=== PATIENT | male | born 1980 | race African-American/Black ===

== ENCOUNTER 2020-02-01 12:26 | Emergency (ER) | payer SELFPAY ==
[~2020-02-01] VITALS: Ht 182.9 cm; Wt 102.3 kg
[2020-02-01 12:55] VITALS: BP 197/109
[2020-02-01] MEDS ORDERED: AMOXICILLIN 250 MG CAPSULE. PO ONE ×2 (13:15→13:45)
[2020-02-01] MEDS ORDERED: LIDOCAINE 1% PF 2 ML VIAL. INJ ONE (13:30)
[2020-02-01] MEDS ORDERED: AMOX500T PO (14:15)
[2020-02-01] MEDS ORDERED: IBUP-1007 PO (14:15)
--- NOTE | 2020-02-01 14:16 | PHYS DOC ---
Past Medical History Past Medical History: No Pertinent History Past Surgical History: No Surgical History Smoking Status: Current Every Day Smoker Alcohol Use: None General Adult EDM: Chief Complaint: DENTAL PROBLEM HPI: HPI: Patient is a 39 year old male patient who presents to the ED today with 10 out of 10 left lower gum dental pain that began 4 days ago. Patient denies any fever. Denies any trismus. Review of Systems: Review of Systems: Constitutional: Denies fever or chills. [] HENT: Reports left lower gum dental pain. Denies nasal congestion or sore throat. [] Musculoskeletal: Denies back pain or joint pain. [] Integument: Denies rash. [] Neurologic: Denies headache, focal weakness or sensory changes. [] Psychiatric: Denies depression or anxiety. [] Heart Score: Risk Factors: Risk Factors: DM, Current or recent (<one month) smoker, HTN, HLP, family history of CAD, obesity. Risk Scores: Score 0 - 3: 2.5% MACE over next 6 weeks - Discharge Home Score 4 - 6: 20.3% MACE over next 6 weeks - Admit for Clinical Observation Score 7 - 10: 72.7% MACE over next 6 weeks - Early Invasive Strategies Current Medications: Current Medications Medications (Trade) Dose Ordered Sig/Tarik Start Time Stop Time Status Last Admin Dose Admin Amoxicillin (Amoxil) 500 mg 1X ONCE 02/01/20 13:45 02/01/20 13:46 DC 02/01/20 13:30 500 MG Lidocaine HCl (Xylocaine-Mpf 1% 2ml Vial) 2 ml 1X ONCE 02/01/20 13:30 02/01/20 13:31 DC 02/01/20 13:30 2 ML Allergies: Allergies: Allergies Coded Allergies Type Severity Reaction Last Updated Verified No Known Drug Allergies 02/01/20 No Physical Exam: PE: Constitutional: Well developed, well nourished, no acute distress, non-toxic appearance. [] HENT: Normocephalic, atraumatic, bilateral external ears normal, oropharynx moist, no oral exudates, nose normal. [] Approximately tooth #20 is broken and decayed. No gum erythema or abscess noted. Skin: Warm, dry, no erythema, no rash. [] Back: No tenderness, no CVA tenderness. [] Extremities: No tenderness, no cyanosis, no clubbing, ROM intact, no edema. [] Neurologic: Alert and oriented X 3, normal motor function, normal sensory function, no focal deficits noted. [] Psychologic: Affect normal, judgement normal, mood normal. [] Current Patient Data: Vital Signs: Vital Signs Date Time Temp Pulse Resp B/P (MAP) Pulse Ox O2 Delivery O2 Flow Rate FiO2 02/01/20 12:55 98.6 14 197/109 (138) 97 Room Air 98.6 EKG: EKG: [] Radiology/Procedures: Radiology/Procedures: [] Course & Med Decision Making: Course & Med Decision Making Pertinent Labs and Imaging studies reviewed. (See chart for details) This is a 39-year-old male patient presenting to the ED today with a dental pain. Patient was given pain relief via lidocaine. Discharged on amoxicillin first dose given in the ED. Provided dental list for follow-up. Dragon Disclaimer: Dragon Disclaimer: This electronic medical record was generated, in whole or in part, using a voice recognition dictation system. Departure Departure Impression: Primary Impression: Dental infection Disposition: 01 HOME, SELF-CARE Condition: STABLE Referrals: NO PCP (PCP) Follow-up with 1 of the dentist in 1 week Patient Instructions: Dental Pain, [id number] Additional Instructions: Please contact one of the dentist from the list provided and follow-up as soon as possible. Take the prescribed antibiotics until completed. Scripts Ibuprofen (IBUPROFEN) 600 Mg Tablet 600 MG PO PRN Q6HRS PRN for INFLAMMATION, #20 TAB Prov: KAYLYN CHOPRA APRN 02/01/20 Amoxicillin (AMOXICILLIN) 500 Mg Tablet 1 TAB PO BID, #14 TAB Prov: KAYLYN CHOPRA APRN 02/01/20 Justicifation of Admission Dx: Justifications for Admission: Justification of Admission Dx: N/A KAYLYN CHOPRA APRN Feb 01, 2020 14:16
[2020-02-02] MEDS ORDERED: AMOX1TAB61 PO (01:29)
[2020-02-02] MEDS ORDERED: PRED20TA PO (01:29)
[2020-02-02] MEDS ORDERED: CHLO15MO2 PO (01:29)
== END 2020-02-01 14:30 | disposition home or self-care (01) ==
LOC: ER 12:26
DX: K04.7 Periapical abscess without sinus (principal); K08.89 Other specified disorders of teeth and supporting structures; F17.200 Nicotine dependence, unspecified, uncomplicated
CPT/HCPCS: 96372; 99283; J3490

== ENCOUNTER 2020-02-02 01:04 | Emergency (ER) | payer SELFPAY ==
[~2020-02-02] VITALS: Ht 182.9 cm; Wt 102.3 kg
[~2020-02-02 01:04] MED LIST: AMOX500T PO; IBUP-1007 PO
[2020-02-02] MEDS ORDERED: AMOX1TAB61 PO (01:29)
[2020-02-02] MEDS ORDERED: CHLO15MO2 PO (01:29)
[2020-02-02] MEDS ORDERED: PRED20TA PO (01:29)
--- NOTE | 2020-02-02 01:29 | PHYS DOC ---
Past Medical History Past Medical History: No Pertinent History Past Surgical History: No Surgical History Smoking Status: Current Every Day Smoker Alcohol Use: None General Adult EDM: Chief Complaint: TOOTH ACHE OR PAIN HPI: HPI: Patient is a 39 year old [f__sex] who presents with [] Review of Systems: Review of Systems: Constitutional: Denies fever or chills. [] Eyes: Denies change in visual acuity. [] HENT: Denies nasal congestion or sore throat. [] Respiratory: Denies cough or shortness of breath. [] Cardiovascular: Denies chest pain or edema. [] GI: Denies abdominal pain, nausea, vomiting, bloody stools or diarrhea. [] : Denies dysuria. [] Musculoskeletal: Denies back pain or joint pain. [] Integument: Denies rash. [] Neurologic: Denies headache, focal weakness or sensory changes. [] Endocrine: Denies polyuria or polydipsia. [] Lymphatic: Denies swollen glands. [] Psychiatric: Denies depression or anxiety. [] Heart Score: Risk Factors: Risk Factors: DM, Current or recent (<one month) smoker, HTN, HLP, family history of CAD, obesity. Risk Scores: Score 0 - 3: 2.5% MACE over next 6 weeks - Discharge Home Score 4 - 6: 20.3% MACE over next 6 weeks - Admit for Clinical Observation Score 7 - 10: 72.7% MACE over next 6 weeks - Early Invasive Strategies Allergies: Allergies: Allergies Coded Allergies Type Severity Reaction Last Updated Verified No Known Drug Allergies 02/01/20 No Physical Exam: PE: Constitutional: Well developed, well nourished, no acute distress, non-toxic appearance. [] HENT: Normocephalic, atraumatic, bilateral external ears normal, oropharynx m oist, no oral exudates, nose normal. [] Eyes: PERRLA, EOMI, conjunctiva normal, no discharge. [] Neck: Normal range of motion, no tenderness, supple, no stridor. [] Cardiovascular:Heart rate regular rhythm, no murmur [] Lungs & Thorax: Bilateral breath sounds clear to auscultation [] Abdomen: Bowel sounds normal, soft, no tenderness, no masses, no pulsatile masses. [] Skin: Warm, dry, no erythema, no rash. [] Back: No tenderness, no CVA tenderness. [] Extremities: No tenderness, no cyanosis, no clubbing, ROM intact, no edema. [] Neurologic: Alert and oriented X 3, normal motor function, normal sensory function, no focal deficits noted. [] Psychologic: Affect normal, judgement normal, mood normal. [] Current Patient Data: Vital Signs: Vital Signs Date Time Temp Pulse Resp B/P (MAP) Pulse Ox O2 Delivery O2 Flow Rate FiO2 02/02/20 01:10 98.4 98 20 202/118 (146) 100 Room Air 98.4 EKG: EKG: [] Radiology/Procedures: Radiology/Procedures: [] Course & Med Decision Making: Course & Med Decision Making Pertinent Labs and Imaging studies reviewed. (See chart for details) [] Dragon Disclaimer: Dragon Disclaimer: This electronic medical record was generated, in whole or in part, using a voice recognition dictation system. Departure Departure Impression: Primary Impression: Dentalgia Additional Impression: Dental caries Disposition: HOME, SELF-CARE Condition: STABLE Referrals: NO PCP (PCP) Patient Instructions: Dental Caries, Toothache-Brief Scripts Prednisone (PREDNISONE) 20 Mg Tablet 2 TAB PO DAILY, #8 TAB Start this prescription tomorrow, Sunday02/03/20 Prov: CARLOS MCLEOD DO 02/02/20 Chlorhexidine Gluconate (PERIDEX) 15 Ml Mouthwash 15 ML PO BID, #473 ML 0 Refills Prov: CARLOS MCLEOD DO 02/02/20 Amoxicillin/Potassium Clav (AUGMENTIN 875-125 TABLET) 1 Each Tablet 1 TAB PO BID, #14 TAB Prov: CARLOS MCLEOD DO 02/02/20 Justicifation of Admission Dx: Justifications for Admission: Justification of Admission Dx: N/A CARLOS MCLEOD DO Feb 02, 2020 01:29
[2020-02-02] MEDS ORDERED: DEXAMETHASONE 4 MG TABLET PO ONE (02:00)
[2020-02-02] MEDS ORDERED: AMOXICILLIN/K CLAV 875/125MG TABLET. PO ONE (02:00)
[2020-02-02] MEDS ORDERED: KETOROLAC 30 MG/ML VIAL. IM ONE (02:00)
[2020-02-02 02:12] VITALS: BP 189/105
== END 2020-02-02 02:15 | disposition home or self-care (01) ==
LOC: ER 01:04
DX: K02.9 Dental caries, unspecified (principal); K08.89 Other specified disorders of teeth and supporting structures; F17.200 Nicotine dependence, unspecified, uncomplicated
CPT/HCPCS: 96372; 99283; J1885

== ENCOUNTER 2020-02-21 09:54 | Emergency (ER) | payer SELFPAY ==
[~2020-02-21] VITALS: Ht 182.9 cm; Wt 102.7 kg
[~2020-02-21 09:54] MED LIST changes: +AMOX1TAB61 PO; +CHLO15MO2 PO; +PRED20TA PO
--- NOTE | 2020-02-21 10:08 | PHYS DOC ---
Past Medical History Past Medical History: No Pertinent History, CHF Past Surgical History: No Surgical History Smoking Status: Current Every Day Smoker Alcohol Use: None Drug Use: None General Adult EDM: Chief Complaint: DENTAL PROBLEM HPI: HPI: Patient is a 39 year old male who presents with dental pain. Patient has a long history of dental pain got aggravated a day or so ago. Patient denies any inciting events. Patient describes moderate intensity aching left mandibular molar pain. Pain is nonradiating. Pain is worse with eating. Patient denies any fever. Review of Systems: Review of Systems: Constitutional: Denies fever or chills. [] Eyes: Denies change in visual acuity. [] HENT: Denies nasal congestion or sore throat. [] Complains of dental pain Respiratory: Denies cough or shortness of breath. [] Cardiovascular: Denies chest pain or edema. [] GI: Denies abdominal pain, nausea, vomiting, bloody stools or diarrhea. [] : Denies dysuria. [] Musculoskeletal: Denies back pain or joint pain. [] Integument: Denies rash. [] Neurologic: Denies headache, focal weakness or sensory changes. [] Endocrine: Denies polyuria or polydipsia. [] Lymphatic: Denies swollen glands. [] Psychiatric: Denies depression or anxiety. [] Heart Score: Risk Factors: Risk Factors: DM, Current or recent (<one month) smoker, HTN, HLP, family history of CAD, obesity. Risk Scores: Score 0 - 3: 2.5% MACE over next 6 weeks - Discharge Home Score 4 - 6: 20.3% MACE over next 6 weeks - Admit for Clinical Observation Score 7 - 10: 72.7% MACE over next 6 weeks - Early Invasive Strategies Allergies: Allergies: Allergies Coded Allergies Type Severity Reaction Last Updated Verified No Known Drug Allergies 02/01/20 No Physical Exam: PE: Constitutional: Well developed, well nourished, no acute distress, non-toxic appearance. [] HENT: Normocephalic, atraumatic, bilateral external ears normal, large dental caries in the left molar mandibular area. No submandibular swelling Eyes: PERRLA, EOMI, conjunctiva normal, no discharge. [] Neck: Normal range of motion, no tenderness, supple, no stridor. [] Cardiovascular:Heart rate regular rhythm, peripheral pulses intact Lungs & Thorax: Bilateral breath sounds clear no respiratory distress Abdomen: , soft, no tenderness, no masses, no pulsatile masses. [] Skin: Warm, dry, no erythema, no rash. [] Back: No tenderness, no CVA tenderness. [] Extremities: No tenderness, no cyanosis, no clubbing, ROM intact, no edema. [] Neurologic: Alert and oriented X 3, normal motor function, normal sensory function, no focal deficits noted. [] Psychologic: Affect normal, judgement normal, mood normal. [] Current Patient Data: Vital Signs: Vital Signs Date Time Temp Pulse Resp B/P (MAP) Pulse Ox O2 Delivery O2 Flow Rate FiO2 02/21/20 10:13 98.0 78 16 144/92 (109) 97 Room Air 98.0 EKG: EKG: [] Radiology/Procedures: Radiology/Procedures: [] Course & Med Decision Making: Course & Med Decision Making Pertinent Labs and Imaging studies reviewed. (See chart for details) [] No drainable abscess. Floor the mouth is soft Evitaon Disclaimer: Kia Disclaimer: This electronic medical record was generated, in whole or in part, using a voice recognition dictation system. Departure Departure Impression: Primary Impression: Dental infection Disposition: 01 HOME, SELF-CARE Condition: STABLE Referrals: NO PCP (PCP) dental 2-3 days Patient Instructions: Dental Abscess Additional Instructions: EMERGENCY DEPARTMENT GENERAL DISCHARGE INSTRUCTIONS THANK YOU for coming to [facility] Emergency Department (ED) today and trusting us with your care. We trust that you had a positive experience in our Emergency Department. If you wish to speak to the department Management you can contact the line department supervisor at . YOUR FOLLOW UP INSTRUCTIONS ARE FOLLOWS: Do you have a private doctor? If you do not have a private doctor, please ask for a resource list of physicians or clinics that may be able to assist you with follow up care. The Emergency Physician has interpreted your x-rays. The X-ray specialist will also review them. If there is a change in the findings you will be notified in 48 hours when at all possible. A lab test or lab culture may have been done, your results will be reviewed and you will be notified if you need a change in treatment. ADDITIONAL INSTRUCTIONS AND INFORMATION Your care today has been supervised by a physician who is specially trained in emergency care. Many problems require more than one evaluation for a complete diagnosis and treatment. We recommend that you schedule your follow up appointment as recommended to ensure complete treatment of your illness or injury. If you are unable to obtain follow up care and continue to have a problem, or if your condition worsens we recommend that you return to the ED. We are not able to safely determine your condition over the phone nor are we able to give sound medical advice over the phone. For these safety reasons, if you call for medical advice we will ask you to come to the ED for further evaluation If you have any questions regarding these discharge instructions please call the ED at . SAFETY INFORMATION In the interest of safety, wellness, and injury prevention; we encourage you to wear your seatbelt, if you smoke; quit smoking, and we encourage your family to use protective helmet for bicycling and other sporting events that present an increased risk for head injury. IF YOUR SYMPTOMS WORSEN OR NEW SYMPTOMS DEVELOP, OR YOU HAVE CONCERNS ABOUT YOUR CONDITION; OR IF YOUR CONDITION WORSENS WHILE YOU ARE WAITING FOR YOUR FOLLOW UP APPOINTMENT; EITHER CONTACT YOUR PRIMARY CARE DOCTOR, THE PHYSICIAN WHOSE NAME AND NUMBER YOU WERE GIVEN, OR RETURN TO THE ED IMMEDIATELY. Scripts Ibuprofen (Ibuprofen) 600 Mg Tablet 600 MG PO Q8HRS, #30 TAB Prov: TIFFANY AVILES MD 02/21/20 Amoxicillin (AMOXICILLIN) 500 Mg Capsule 1 CAP PO TID, #30 CAP Prov: TIFFANY AVILES MD 02/21/20 Chlorhexidine Gluconate (PERIDEX) 15 Ml Mouthwash 15 ML PO BID for 30 Days, #473 ML 0 Refills Prov: TIFFANY AVILES MD 02/21/20 Justicifation of Admission Dx: Justifications for Admission: Justification of Admission Dx: N/A TIFFANY AVILES MD Feb 21, 2020 10:08
[2020-02-21 10:13] VITALS: BP 144/92
[2020-02-21] MEDS ORDERED: IBUP-985 PO (10:17)
[2020-02-21] MEDS ORDERED: CHLO15MO2 PO (10:17)
[2020-02-21] MEDS ORDERED: AMOX500C PO (10:17)
[2020-02-21] MEDS ORDERED: KETOROLAC 30 MG/ML VIAL. IM ONE (10:30)
== END 2020-02-21 10:27 | disposition home or self-care (01) ==
LOC: ER 09:54
DX: K04.7 Periapical abscess without sinus (principal); K08.89 Other specified disorders of teeth and supporting structures; I50.9 Heart failure, unspecified; F17.200 Nicotine dependence, unspecified, uncomplicated
CPT/HCPCS: 96372; 99283; J1885

== ENCOUNTER 2020-06-16 10:34 | Emergency (ER) | payer SELFPAY ==
[~2020-06-16] VITALS: Ht 177.8 cm; Wt 100.0 kg
[~2020-06-16 10:34] MED LIST changes: +AMOX500C PO; +IBUP-985 PO
[2020-06-16 11:17] VITALS: BP 154/65
--- NOTE | 2020-06-16 11:48 | PHYS DOC ---
Past Medical History Past Medical History: No Pertinent History, CHF (KAYLYN CHOPRA APRN) Past Surgical History: No Surgical History (KAYLYN CHOPRA APRN) Smoking Status: Current Every Day Smoker Alcohol Use: None Drug Use: None (KAYLYN CHOPRA APRN) General Adult EDM: Chief Complaint: PSYCH EVALUATION HPI: HPI: Patient is a 39 year old male with history of CHF who presents to the ED today complaining stating there is a chip in his body controlling him. He states the chip was implanted by unknown person for the last 10 months. He states it causes him pain to the left jaw and left lower extremity specifically foot. Denies any suicidal or homicidal ideations. Refusing to give much information but continues to talk about this chip. Patient has a page of hand written notes by him regarding information he found out about the chip. Patient denies any suicidal or homicidal ideations. (KAYLYN CHOPRA APRN) Review of Systems: Review of Systems: Constitutional: Denies fever or chills. [] Eyes: Denies change in visual acuity. [] HENT: Denies nasal congestion or sore throat. [] Respiratory: Denies cough or shortness of breath. [] Cardiovascular: Denies chest pain or edema. [] GI: Denies abdominal pain, nausea, vomiting, bloody stools or diarrhea. [] : Denies dysuria. [] Musculoskeletal: Denies back pain or joint pain. [] Integument: Denies rash. [] Neurologic: Denies headache, focal weakness or sensory changes. [] Endocrine: Denies polyuria or polydipsia. [] Lymphatic: Denies swollen glands. [] Psychiatric: Reports chip in his body (KAYLYN CHOPRA APRN) Heart Score: Risk Factors: Risk Factors: DM, Current or recent (<one month) smoker, HTN, HLP, family history of CAD, obesity. Risk Scores: Score 0 - 3: 2.5% MACE over next 6 weeks - Discharge Home Score 4 - 6: 20.3% MACE over next 6 weeks - Admit for Clinical Observation Score 7 - 10: 72.7% MACE over next 6 weeks - Early Invasive Strategies (KAYLYN CHOPRA APRN) Allergies: Allergies: Allergies Coded Allergies Type Severity Reaction Last Updated Verified No Known Drug Allergies 02/01/20 No (KAYLYN CHOPRA APRN) Physical Exam: PE: Constitutional: Well developed, well nourished, no acute distress, non-toxic appearance. [] HENT: Normocephalic, atraumatic, bilateral external ears normal, oropharynx moist, no oral exudates, nose normal. [] Eyes: PERRLA, EOMI, conjunctiva normal, no discharge. [] Neck: Normal range of motion, no tenderness, supple, no stridor. [] Cardiovascular:Heart rate regular rhythm, no murmur [] Lungs & Thorax: Bilateral breath sounds clear to auscultation [] Abdomen: Bowel sounds normal, soft, no tenderness, no masses, no pulsatile masses. [] Skin: Warm, dry, no erythema, no rash. [] Back: No tenderness, no CVA tenderness. [] Extremities: No tenderness, no cyanosis, no clubbing, ROM intact, no edema. [] Neurologic: Alert and oriented X 3, normal motor function, normal sensory function, no focal deficits noted. [] Psychologic: flat affect (KAYLYN CHOPRA APRN) Current Patient Data: Vital Signs: Vital Signs Date Time Temp Pulse Resp B/P (MAP) Pulse Ox O2 Delivery O2 Flow Rate FiO2 06/16/20 11:17 98.1 92 16 154/65 (94) 98 Room Air 98.1 (KAYLYN CHOPRA APRN) EKG: EKG: [] (KAYLYN CHOPRA APRN) Radiology/Procedures: Radiology/Procedures: [] (KAYLYN CHOPRA APRN) Course & Med Decision Making: Course & Med Decision Making Pertinent Labs and Imaging studies reviewed. (See chart for details) This is a 39-year-old male patient presenting to the ED today stating he has a chip implanted in his body for the last 10 months. Patient is refusing to give much information but wants the chip removed. He has a page of hand written information regarding this chip. [facility] talked to patient and he was discharged with f/u information (KAYLYN CHOPRA APRN) Kia Disclaimer: Kia Disclaimer: This electronic medical record was generated, in whole or in part, using a voice recognition dictation system. (KAYLYN CHOPRA APRN) Departure Departure Impression: Primary Impression: Schizophrenia Qualified Codes: F20.9 - Schizophrenia, unspecified Disposition: 01 DC HOME SELF CARE/HOMELESS Condition: STABLE Referrals: NO PCP (PCP) follow up with resources provided by [facility] Patient Instructions: Schizophrenia Additional Instructions: Please follow up with resources provided by [facility]. Attending Signature Attending Signature I have reviewed the PA/DRUM DRIER's note and plan of care. I was available for consultation as needed during the patient's visit in the emergency department. I agree with the clinical impression, plan, and disposition. (CARLOS MCLEOD DO) KAYLYN CHOPRA APRN Jun 16, 2020 11:48 CARLOS MCLEOD DO Jun 16, 2020 18:52
== END 2020-06-16 13:12 | disposition home or self-care (01) ==
LOC: ER 10:34
DX: F20.9 Schizophrenia, unspecified (principal); F17.200 Nicotine dependence, unspecified, uncomplicated; Z86.79 Personal history of other diseases of the circulatory system
CPT/HCPCS: 99281; 99284